=== PATIENT | male | born 1995 | race African-American/Black ===

== ENCOUNTER 2018-09-20 05:52 | Emergency (ER) | payer OTHER ==
[~2018-09-20] VITALS: Ht 180.3 cm; Wt 74.8 kg
[2018-09-20] MEDS ORDERED: KEPPRA500 M4 ORAL (05:56)
--- NOTE | 2018-09-20 06:09 | Emergency Room Report ---
History of Present Illness General Chief Complaint: Seizure Source: Patient Present Illness [facility] This is a 23-year-old male with a history of seizure. He takes Keppra but according to tip length checker noncompliant. He had 3 small seizure earlier this morning. He has oral trauma. No incontinence of bowel or urine. Back to baseline now. Per EMS he was a little bit postictal. He does not drive. No trauma other than oral trauma. No head injury. Allergies: Coded Allergies: No Known Allergies (Unverified , 09/20/18) Patient History Past Medical History: see triage record, old chart reviewed Past Surgical History: none Pertinent Family History: none Social History: Denies: smoking Immunizations: other Reviewed Nursing Documentation: PMH: Agreed; PSxH: Agreed Nursing Documentation-PMH Past Medical History: No History, Except For Hx Seizures: Yes Review of Systems Eye: Denies: eye pain, blurred vision ENT: Denies: ear pain, nose congestion, throat swelling Respiratory: Denies: cough, shortness of breath Cardiovascular: Denies: chest pain, palpitations Gastrointestinal: Denies: abdominal pain, diarrhea, nausea, vomiting Musculoskeletal: Denies: back pain, joint pain Skin: Denies: rash Neurological: Denies: headache, numbness Endocrine: Denies: increased thirst, increased urine Hematologic/Lymphatic: Denies: easy bruising All Other Systems: negative except mentioned in HPI Physical Exam Vital Signs Date Time Temp Pulse Resp B/P (MAP) Pulse Ox O2 Delivery O2 Flow Rate FiO2 09/20/18 05:52 97.7 85 18 117/71 95 Room Air vitals normal Sp02 EP Interpretation: reviewed, normal General Appearance: well appearing, no apparent distress, alert Head: normocephalic, atraumatic Eyes: bilateral eye PERRL, bilateral eye EOMI ENT: hearing grossly normal, normal pharynx, other - Tongue abrasion on right lateral aspect Neck: full range of motion, supple, no meningismus Respiratory: chest non-tender, lungs clear, normal breath sounds Cardiovascular #1: regular rate, rhythm, no murmur Gastrointestinal: normal bowel sounds, non tender, no mass, no organomegaly, no bruit, non-distended Musculoskeletal: back normal, gait/station normal, normal range of motion Psychiatric: mood/affect normal Skin: warm/dry Medical Decision Making Diagnostic Impression: Primary Impression: Seizure disorder ER Course Patient with breakthrough seizure probably secondary to noncompliance. No trauma to warrant CT head. I see no need for lab work. Patient was given a dose of Keppra IV here. He does not drive so I see no need for DMV report. Last Vital Signs Date Time Temp Pulse Resp B/P (MAP) Pulse Ox O2 Delivery O2 Flow Rate FiO2 09/20/18 05:52 97.7 85 18 117/71 95 Room Air Status: improved Disposition: HOME, SELF-CARE Condition: Stable Patient Instructions: Seizure, Adult Additional Instructions: Take your medication. Follow-up with your doctor in 7 days. Return if symptom worsen. Ian Limon MD Sep 20, 2018 06:09
[2018-09-20 06:10] VITALS: BP 117/71
--- NOTE | 2018-09-20 06:10 | NUR ---
ED Nurse Note: Patient was brought by RA from home due to seizure. Per patient's family he had 3 seizures in a row, each one about 10-15 sec. AAO x4, VSS at this time, skin is intact, dry, warm to touch. Patient has mild headache.
--- NOTE | 2018-09-20 06:12 | NUR ---
ED Nurse Note: Per EMT patient is not complying with his seizure medication.
[2018-09-20] MEDS ORDERED: levETIRAcetam 1,000mg/NS100ml 100 ML IVPB ONE (06:15)
[2018-09-20 06:33] VITALS: BP 117/71
--- NOTE | 2018-09-20 06:37 | NUR ---
ER DISCHARGE NOTE: Patient is cleared to be discharged per ERMD, pt is aox4, on room air, with stable vital signs. pt was given dc and prescription instructions, pt was able to verbalize understanding, pt id band and iv site removed without complications. pt is able to ambulate with steady gait. pt took all belongings.
== END 2018-09-20 07:00 | disposition home or self-care (01) ==
LOC: EDBD 05:52 → EMR 06:50
DX: G40.909 Epilepsy, unspecified, not intractable, without status epilepticus (principal); Z91.14 Patient's other noncompliance with medication regimen
CPT/HCPCS: 96374; 99284; J1953